=== PATIENT | male | born 1980 | race Caucasian/White ===

== ENCOUNTER → 2018-02-25 | Outpatient (REF) ==
[~2018-02-25] MED LIST: ASPI-1471 PO; ATOR40TA24 PO; LISI-362 PO; MULT-865 PO
== END ==
LOC: AUD 08:34
PROVIDERS: ATTEND Internal Medicine
DX: Z01.10 Encounter for examination of ears and hearing without abnormal findings (principal)
CPT/HCPCS: 92552

== ENCOUNTER → 2018-04-29 | Outpatient (REF) | LOC: US 04-28 13:39 | PROVIDERS: ATTEND Internal Medicine | DX: I34.0 Nonrheumatic mitral (valve) insufficiency (principal); I07.1 Rheumatic tricuspid insufficiency | CPT/HCPCS: 93308; 93325 ==

== ENCOUNTER → 2019-03-17 | Outpatient (REF) | LOC: AUD 09:05 | PROVIDERS: ATTEND Internal Medicine | DX: Z01.12 Encounter for hearing conservation and treatment (principal) | CPT/HCPCS: 92552 ==